=== PATIENT | female | born 1945 | race Caucasian/White ===

== ENCOUNTER 2023-08-08 09:28 | Outpatient (CLI) | payer MEDICARE | END 2023-08-08 09:29 | disposition home or self-care (01) | LOC: ULT 09:28 | PROVIDERS: ATTEND Family Medicine | DX: N39.41 Urge incontinence (principal); R19.7 Diarrhea, unspecified; N13.30 Unspecified hydronephrosis; K80.20 Calculus of gallbladder without cholecystitis without obstruction; N32.89 Other specified disorders of bladder; K82.8 Other specified diseases of gallbladder | CPT/HCPCS: 76700; 76856 ==

== ENCOUNTER 2023-09-30 13:08 | Inpatient (IN) | payer MEDICARE ==
[~2023-09-30 13:08] MED LIST: Iopamidol-370 76% 500 ML MDV (1 ML CHARGE) ONE
[2023-09-30 13:47] LABS: #Basophils 0.03 10x3/uL (0.0-0.2); %Basophils 0.5 % (0.0-1.0); %Eosinophils 1.9 % (0.0-10.0); %Lymphocytes 20.6 % (21.0-51.0); %Monocytes 11.8 % (0.0-10.0); %Neutrophils 64.9 % (42.0-75.0); Hematocrit 37.9 % (36.0-47.0); Hemoglobin 12.2 g/dL (12.0-16.0); Mean Corpuscular HGB CONC 32.2 g/dL (32.0-36.0); Mean Corpuscular Hemoglobin 27.6 pg (27.0-31.0); Mean Corpuscular Volume 85.7 fL (78.0-98.0); Mean Platelet Volume 10.8 fL (7.4-10.4); Platelet Count 151 10x3/uL (130-400); RBC Distribution Width 14.6 % (11.5-14.5); Red Blood Cell (RBC) Count 4.42 mill/uL (4.20-5.40)
[2023-09-30 13:58] LABS: Globulin 3.7 g/dL (2.4-3.5)
[2023-09-30 14:03] LABS: ALT (SGPT) Less than 5 U/L (8-55); AST (SGOT) 12 U/L (5-34); Albumin 3.1 g/dL (3.4-4.8); Alkaline Phosphatase 75 U/L (40-110); Anion Gap 16 mmol/L (10-20); BUN (Urea Nitrogen) 56 mg/dL (9.8-20.1); Bilirubin, Total 0.5 mg/dL (0.2-1.2); Calc. Creatinine Clearance 0 mL/min (70-130); Calcium 9.5 mg/dL (7.8-10.44); Carbon Dioxide 28 mmol/L (23-31); Chloride 100 mmol/L (98-107); Estimated GFR 21; Glucose 107 mg/dL (83-110); Magnesium 2.4 mg/dL (1.6-2.6); Potassium 4.5 mmol/L (3.5-5.1); Protein, Total 6.8 g/dL (5.8-8.1); Sodium 139 mmol/L (136-145)
[2023-09-30 14:12] LABS: Troponin I Less than 0.010 ng/mL (< 0.028)
[2023-09-30] MEDS ORDERED: fentaNYL 50 mcg/mL 1 mL Vial ONE (14:22)
[2023-09-30 14:28] LABS: Lipase 68 U/L (8-78)
[2023-09-30] MEDS ORDERED: Ondansetron PF 4 MG/2 ML Vial IVP PRN (17:39)
[2023-09-30] MEDS ORDERED: Acetaminophen 325 MG TAB PO PRN (17:39)
[2023-09-30 18:57] LABS: Troponin I Less than 0.010 ng/mL (< 0.028)
[2023-09-30] MEDS: Sodium Chloride 0.9% 1,000 ML IV SCH (20:09)
[2023-09-30] MEDS: Atorvastatin Calcium 40 MG TAB PO SCH (20:10)
[2023-09-30 20:40] VITALS: BMI 23.9
[2023-10-01 01:44] LABS: Troponin I Less than 0.010 ng/mL (< 0.028)
[2023-10-01 04:35] LABS: #Basophils 0.03 10x3/uL (0.0-0.2); %Basophils 0.5 % (0.0-1.0); %Eosinophils 2.3 % (0.0-10.0); %Lymphocytes 18.9 % (21.0-51.0); Hematocrit 36.2 % (36.0-47.0); Hemoglobin 11.5 g/dL (12.0-16.0); Mean Corpuscular HGB CONC 31.8 g/dL (32.0-36.0); Mean Corpuscular Hemoglobin 27.1 pg (27.0-31.0); Mean Corpuscular Volume 85.4 fL (78.0-98.0); Mean Platelet Volume 11.4 fL (7.4-10.4); Platelet Count 143 10x3/uL (130-400); RBC Distribution Width 14.9 % (11.5-14.5); Red Blood Cell (RBC) Count 4.24 mill/uL (4.20-5.40)
[2023-10-01 05:00] LABS: Anion Gap 15 mmol/L (10-20); BUN (Urea Nitrogen) 47 mg/dL (9.8-20.1); Calc. Creatinine Clearance 26 mL/min (70-130); Carbon Dioxide 25 mmol/L (23-31); Chloride 103 mmol/L (98-107); Estimated GFR 28; Glucose 93 mg/dL (83-110); Potassium 4.1 mmol/L (3.5-5.1); Sodium 139 mmol/L (136-145)
[2023-10-01] MEDS: Enoxaparin 30 MG (0.3 mL) SYRINGE SC SCH (07:59)
[2023-10-01] MEDS: Aspirin 81 mg Enteric Coated Tablet PO SCH (07:59)
[2023-10-01] MEDS ORDERED: Regadenoson 0.4 MG/5 ML SYRINGE ONE (09:42)
[2023-10-01 16:17] VITALS: TEMP 97.6
[2023-10-01 17:15] VITALS: BP 138/88
== END 2023-10-01 18:14 | disposition home or self-care (01) | DRG 313 ==
LOC: ERS 13:08 → 2SW 17:07 → OBSVTOIN 10-01 09:19
PROVIDERS: ADMIT Internal Medicine; ATTEND Internal Medicine
DX: R07.89 Other chest pain (principal); N17.9 Acute kidney failure, unspecified; N18.4 Chronic kidney disease, stage 4 (severe); F32.9 Major depressive disorder, single episode, unspecified; R00.1 Bradycardia, unspecified; I12.9 Hypertensive chronic kidney disease with stage 1 through stage 4 chronic kidney disease, or unspecified chronic kidney disease; K21.9 Gastro-esophageal reflux disease without esophagitis; I71.40 Abdominal aortic aneurysm, without rupture, unspecified; Z90.49 Acquired absence of other specified parts of digestive tract; Z90.710 Acquired absence of both cervix and uterus; Z90.89 Acquired absence of other organs; Z87.891 Personal history of nicotine dependence
CPT/HCPCS: 36415; 71045; 71275; 74174; 78452; 80048; 80053; 83605; 83690; 83735; 83880; 84484; 85025; 86850; 86870; 86900; 86901; 86904; 86905; 86922; 93005; 93017; 96374; A9502; J2785; J3010; J7050; Q9967

== ENCOUNTER 2023-11-08 12:30 | Inpatient (IN) | payer MEDICARE ==
[2023-11-08 14:42] LABS: Hematocrit 38.7 % (34.9-44.5); Hemoglobin 12.8 g/dL (12.0-15.5); Mean Corpuscular HGB CONC 33.1 g/dL (32.0-36.0); Mean Corpuscular Hemoglobin 28.8 pg (27.0-33.0); Mean Corpuscular Volume 87.2 fL (81.6-98.3); Mean Platelet Volume 10.9 fL (7.4-10.4); Platelet Count 223 10x3/uL (150-450); RBC Distribution Width 14.3 % (11.5-14.5); Red Blood Cell (RBC) Count 4.44 10x6/uL (3.90-5.03); White Blood Cell (WBC) Count 9.6 10x3/uL (3.5-10.5)
[2023-11-08 14:49] LABS: Anion Gap 15 mmol/L (10-20); BUN (Urea Nitrogen) 36 mg/dL (9.8-20.1); Calc. Creatinine Clearance 0 mL/min (70-130); Carbon Dioxide 25 mmol/L (23-31); Chloride 103 mmol/L (98-107); Estimated GFR 29; Glucose 140 mg/dL (83-110); Potassium 4.4 mmol/L (3.5-5.1); Sodium 139 mmol/L (136-145)
[2023-11-09] MEDS ORDERED: fentaNYL PF 100 MCG/2 ML SYRINGE ONE (06:38)
[2023-11-09] MEDS ORDERED: PROPOFOL 20 ML ONE (06:38)
[2023-11-09] MEDS ORDERED: ePHEDrine Sulfate 50 MG/10 ML VIAL ONE (06:38)
[2023-11-09] MEDS ORDERED: SUGAMMADEX SODIUM 200 MG/2 ML VIAL ONE (06:38)
[2023-11-09] MEDS ORDERED: Lidocaine 2% PF 100 mg/5 ml Syringe ONE (06:42)
[2023-11-09] MEDS ORDERED: Norepinephrine 4 MG/4 ML VIAL ONE (06:42)
[2023-11-09] MEDS ORDERED: Rocuronium Bromide 10 MG/ML (10ML VIAL) ONE (06:42)
[2023-11-09] MEDS ORDERED: Ondansetron PF 4 MG/2 ML Vial ONE (06:42)
[2023-11-09] MEDS ORDERED: Heparin 10,000 UNITS/ 10 ML VIAL ONE ×2 (06:42→08:00)
[2023-11-09] MEDS ORDERED: CEFAZOLIN 1 GM VIAL ONE (06:42)
[2023-11-09] MEDS ORDERED: Lidocaine 2% PF 5 ML VIAL ONE (06:42)
[2023-11-09] MEDS ORDERED: Dexamethasone 4 mg/ml Vial ONE (06:42)
[2023-11-09] MEDS ORDERED: Protamine Sulfate 50 MG/5 ML VIAL ONE (06:42)
[2023-11-09] MEDS ORDERED: Heparin 5,000 UNITS/ML VIAL ONE (07:37)
[2023-11-09] MEDS ORDERED: Heparin 10,000 UNITS/1 ML VIAL 30,000 UNITS in Sodium Chloride 0.9% 1,000 ML FS SCH (07:45)
[2023-11-09] MEDS ORDERED: PHENYLEPHRINE-NS 100 MCG/ML 10 ML SYRINGE ONE (07:51)
[2023-11-09] MEDS ORDERED: Calcium Chloride 1 GM/10 ML Abboject SYRINGE ONE (07:51)
[2023-11-09] MEDS ORDERED: EPINEPHrine 1 MG/10 ML Abboject SYRINGE ONE (08:20)
[2023-11-09] MEDS ORDERED: Vasopressin 20 UNITS/ML VIAL ONE (08:20)
[2023-11-09] MEDS ORDERED: fentaNYL 50 mcg/mL 1 mL Vial ONE ×2 (09:55→10:58)
[2023-11-09] MEDS ORDERED: Ipratropium/Albuterol 3 ML NEB NEB PRN (10:38)
[2023-11-09] MEDS ORDERED: Acetaminophen 325 MG TAB PO PRN (10:38)
[2023-11-09] MEDS ORDERED: Phenylephrine 40 MG in Sodium Chloride 0.9% 250 ML 250 ML IVPB PRN (10:38)
[2023-11-09] MEDS ORDERED: Ondansetron PF 4 MG/2 ML Vial IVP PRN (10:38)
[2023-11-09] MEDS ORDERED: Nitroglycerin 50 MG/250 ML BOT 250 ML IVPB PRN (10:38)
[2023-11-09] MEDS ORDERED: D5 1/2 NS w/20 mEq KCL 1,000 ML ONE (11:04)
[2023-11-09] MEDS ORDERED: Promethazine HCl 25 MG/ML VIAL IM PRN (11:06)
[2023-11-09] MEDS ORDERED: diphenhydrAMINE 25 MG CAP PO PRN (11:06)
[2023-11-09] MEDS ORDERED: Naloxone HCl 0.4 mg/ml Vial IV PRN (11:06)
[2023-11-09] MEDS ORDERED: diphenhydrAMINE 50 MG/ML VIAL IVP PRN (11:06)
[2023-11-09] MEDS ORDERED: diphenhydrAMINE 50 MG/ML VIAL IM PRN (11:06)
[2023-11-09] MEDS ORDERED: Communication Order-Pharmacy FS SCH (11:15)
[2023-11-09] MEDS: Ondansetron PF 4 MG/2 ML Vial IVP PRN (12:01)
[2023-11-09] MEDS: HYDROmorphone/PF 10 MG in Sodium Chloride 0.9% 99 ML IV PRN (12:45)
[2023-11-09] MEDS: CEFAZOLIN 2 GM in Sodium Chloride 0.9% 100 ML IVPB SCH (14:38)
[2023-11-09] MEDS: D5 1/2 NS w/20 mEq KCL 1,000 ML IV SCH (14:45)
[2023-11-09] MEDS: Carvedilol 6.25 MG TAB PO SCH (16:58)
[2023-11-09] MEDS: Gabapentin 300 MG CAP PO SCH (21:15)
[2023-11-10 05:34] LABS: Anion Gap 19 mmol/L (10-20); BUN (Urea Nitrogen) 40 mg/dL (9.8-20.1); Calc. Creatinine Clearance 23 mL/min (70-130); Calcium 8.2 mg/dL (7.8-10.44); Carbon Dioxide 17 mmol/L (23-31); Chloride 110 mmol/L (98-107); Estimated GFR 25; Glucose 165 mg/dL (83-110); Potassium 4.3 mmol/L (3.5-5.1); Sodium 142 mmol/L (136-145)
[2023-11-10 06:09] LABS: #Basophils Less than 0.03 10x3/uL (0.0-0.2); #Eosinphils Less than 0.03 10x3/uL (0.0-0.7); %Basophils 0.1 % (0.0-1.0); %Lymphocytes 5.9 % (21.0-51.0); %Monocytes 7.3 % (0.0-10.0); %Neutrophils 86.2 % (42.0-75.0); Hematocrit 32.7 % (36.0-47.0); Hemoglobin 10.3 g/dL (12.0-16.0); Mean Corpuscular HGB CONC 31.5 g/dL (32.0-36.0); Mean Corpuscular Hemoglobin 28.4 pg (27.0-31.0); Mean Corpuscular Volume 90.1 fL (78.0-98.0); Mean Platelet Volume 10.8 fL (7.4-10.4); Platelet Count 176 10x3/uL (130-400); RBC Distribution Width 14.5 % (11.5-14.5); Red Blood Cell (RBC) Count 3.63 mill/uL (4.20-5.40)
[2023-11-10] MEDS: DULoxetine 60 MG CAP PO SCH (08:47)
[2023-11-10] MEDS: Pantoprazole DR 40 MG TAB PO SCH (08:47)
[2023-11-10] MEDS: Aspirin Chewable 81 MG TAB PO SCH (08:48)
[2023-11-10 15:37] VITALS: BMI 23.8
[2023-11-11 04:51] LABS: #Basophils Less than 0.03 10x3/uL (0.0-0.2); #Eosinphils Less than 0.03 10x3/uL (0.0-0.7); %Basophils 0.1 % (0.0-1.0); %Eosinophils 0.1 % (0.0-10.0); %Lymphocytes 9.6 % (21.0-51.0); %Monocytes 9.6 % (0.0-10.0); %Neutrophils 79.9 % (42.0-75.0); Hematocrit 29.8 % (36.0-47.0); Hemoglobin 9.3 g/dL (12.0-16.0); Mean Corpuscular HGB CONC 31.2 g/dL (32.0-36.0); Mean Corpuscular Hemoglobin 28.5 pg (27.0-31.0); Mean Corpuscular Volume 91.4 fL (78.0-98.0); Mean Platelet Volume 10.6 fL (7.4-10.4); Platelet Count 145 10x3/uL (130-400); RBC Distribution Width 14.3 % (11.5-14.5); Red Blood Cell (RBC) Count 3.26 mill/uL (4.20-5.40)
[2023-11-11 05:16] LABS: Anion Gap 12 mmol/L (10-20); BUN (Urea Nitrogen) 32 mg/dL (9.8-20.1); Calc. Creatinine Clearance 30 mL/min (70-130); Calcium 8.5 mg/dL (7.8-10.44); Carbon Dioxide 19 mmol/L (23-31); Chloride 114 mmol/L (98-107); Estimated GFR 34; Glucose 116 mg/dL (83-110); Potassium 4.5 mmol/L (3.5-5.1); Sodium 140 mmol/L (136-145)
[2023-11-11] MEDS: hydrALAZINE 20 MG/ML VIAL SLOW IVP PRN (06:31)
[2023-11-12] MEDS ORDERED: HYDROcodone/Acetaminophen 5/325 mg Tablet PO PRN ×2 (12:04→12:05)
[2023-11-14 09:25] VITALS: TEMP 99.4
[2023-11-14 10:30] VITALS: BP 122/76
== END 2023-11-14 10:30 | disposition home or self-care (01) | DRG 271 ==
LOC: SURG A 11-09 05:55 → CCU 11-09 11:45 → 2NO 11-12 06:00
PROVIDERS: ADMIT Thoracic Surgery (Cardiothoracic Vascular Surgery); ATTEND Thoracic Surgery (Cardiothoracic Vascular Surgery)
PROC: 041 Lower Arteries, Bypass (ICD-10-PCS; principal; 2023-11-09)
PROC: 3E033XZ Introduction of Vasopressor into Peripheral Vein, Percutaneous Approach (ICD-10-PCS; 2023-11-09)
DX: I71.40 Abdominal aortic aneurysm, without rupture, unspecified (principal); I74.09 Other arterial embolism and thrombosis of abdominal aorta; N18.9 Chronic kidney disease, unspecified; I12.9 Hypertensive chronic kidney disease with stage 1 through stage 4 chronic kidney disease, or unspecified chronic kidney disease; K21.9 Gastro-esophageal reflux disease without esophagitis; Z90.49 Acquired absence of other specified parts of digestive tract; Z90.710 Acquired absence of both cervix and uterus; Z90.89 Acquired absence of other organs; Z87.891 Personal history of nicotine dependence; E87.8 Other disorders of electrolyte and fluid balance, not elsewhere classified; Z79.899 Other long term (current) drug therapy; I48.91 Unspecified atrial fibrillation; Z88.8 Allergy status to other drugs, medicaments and biological substances
CPT/HCPCS: 36415; 36416; 80048; 85025; 85027; 86850; 86870; 86900; 86901; 86922; C1889; J0171; J0360; J0690; J1100; J1170; J1642; J1644; J2001; J2405; J2704; J2720; J3010; J3480; J3490

== ENCOUNTER 2023-11-08 13:16 | Outpatient (CLI) | payer MEDICARE | END 2023-11-08 13:17 | disposition home or self-care (01) | LOC: LABBT 13:16 | PROVIDERS: ATTEND Thoracic Surgery (Cardiothoracic Vascular Surgery) | DX: Z01.810 Encounter for preprocedural cardiovascular examination (principal); I71.40 Abdominal aortic aneurysm, without rupture, unspecified | CPT/HCPCS: 93005; 93010 ==

== ENCOUNTER 2023-12-04 14:12 | Outpatient (CLI) | payer MEDICARE | END 2023-12-04 14:13 | disposition home or self-care (01) | LOC: BICMRI 14:12 | PROVIDERS: ATTEND Orthopaedic Surgery | DX: M47.22 Other spondylosis with radiculopathy, cervical region (principal); M50.11 Cervical disc disorder with radiculopathy, high cervical region; M50.121 Cervical disc disorder at C4-C5 level with radiculopathy | CPT/HCPCS: 72141 ==

== ENCOUNTER 2024-02-20 11:02 | Outpatient (CLI) | payer MEDICARE, BC | END 2024-02-20 11:03 | disposition home or self-care (01) | LOC: MRI 11:02 | PROVIDERS: ATTEND Family Medicine | DX: G25.2 Other specified forms of tremor (principal); I67.89 Other cerebrovascular disease | CPT/HCPCS: 70551 ==